=== PATIENT | female | born 1960 | race Caucasian/White ===

== ENCOUNTER 2018-07-21 15:33 | Emergency (ER) | payer OTHER, SELFPAY ==
--- NOTE | 2018-07-21 15:37 | ED.UPPEXIN ---
HPI - Extremity Injury (Upper) <Jeannette Bains PA-C - Last Filed: 07/21/18 21:29> General Chief Complaint: Extremity Injury, Upper Stated Complaint: RIGHT ARM INJURY FROM FALL Time Seen by Provider: 07/21/18 15:36 Source: patient Mode of arrival: ambulatory Limitations: no limitations History of Present Illness HPI narrative: This healthy 58-year-old right-handed female was walking on a downhill trail when she fell backwards with all the weight onto her right wrist and forearm area. The wrist and forearm went behind her (indicates with wrist extended). She denies any head contusion or any other injury. She indicates pain in her wrist and proximal forearm. She states that it is painful to move her hand and fingers but it hurts in her wrist, does not think she hurt any of her fingers or hand. She has not taken any pain medication. She did ice and apply a sling Related Data Allergies Allergy/AdvReac Type Severity Reaction Status Date / Time Sulfa (Sulfonamide Allergy Verified 07/21/18 15:42 Antibiotics) Review of Systems <Jeannette Bains PA-C - Last Filed: 07/21/18 21:29> Review of Systems All systems reviewed & are unremarkable except as noted in HPI and below Exam <Jeannette Bains PA-C - Last Filed: 07/21/18 21:29> Narrative Exam Narrative: GENERAL APPEARANCE: Patient sitting comfortably, in no distress. LUNGS: Clear to auscultation bilaterally. HEART: Rate and rhythm regular without murmur, normal S1 and S2, no S3 or S4. DERMATOLOGIC: No R. UE lacerations or eccymoses MS: Right wrist there is trace effusion. She is tender throughout the entirety of the right wrist, more on the medial side. Also tender throughout the proximal forearm. There is no visible deformity. She cannot move the right wrist secondary to tenderness. She can fully extend the fingers with tenderness. Strength in the fingers appears intact in all robins against resistance. No tenderness over the shoulder joint, elbow joint, snuffbox, metacarpals or fingers. NEUROVASCULAR: Right radial and ulnar pulses 2+, finger tips with brisk cap refill, sensation grossly intact Initial Vital Signs Initial Vital Signs: Vital Signs Temperature 96.9 F L 07/21/18 15:41 Pulse Rate 62 07/21/18 15:41 Respiratory Rate 16 07/21/18 15:41 Blood Pressure 135/98 H 07/21/18 15:41 Pulse Oximetry 100 07/21/18 15:41 <DO Oumou Conner Last Filed: 08/02/18 07:04> Initial Vital Signs Initial Vital Signs: Vital Signs Temperature 96.9 F L 07/21/18 15:41 Pulse Rate 62 07/21/18 15:41 Respiratory Rate 16 07/21/18 15:41 Blood Pressure 135/98 H 07/21/18 15:41 Pulse Oximetry 100 07/21/18 15:41 Course <Jeannette Bains PA-C - Last Filed: 07/21/18 21:29> Additional Information: On splint check patient reported that her forearm and wrist felt much more comfortable. Splint fits appropriately, fingers are warm and pink with sensation grossly intact. Orders Ordered: Discontinued Medications Hydrocodone Bitart/Acetaminophen ([place] 5/325) 2 tab PO NOW ONE Stop: 07/21/18 16:14 Last Admin: 07/21/18 16:19 Dose: 2 tab Ibuprofen (Advil) 800 mg PO NOW ONE Stop: 07/21/18 15:46 Last Admin: 07/21/18 15:52 Dose: 800 mg Vital Signs - 8 hr 07/21/18 15:41 07/21/18 16:40 Temperature 96.9 F L 98.0 F Pulse Rate 62 51 L Respiratory Rate 16 16 Blood Pressure 135/98 H Blood Pressure [Left Arm] 126/73 H Pulse Oximetry 100 98 <DO Oumou Conner Last Filed: 08/02/18 07:04> Orders Ordered: Discontinued Medications Hydrocodone Bitart/Acetaminophen ([place] 5/325) 2 tab PO NOW ONE Stop: 07/21/18 16:14 Last Admin: 07/21/18 16:19 Dose: 2 tab Ibuprofen (Advil) 800 mg PO NOW ONE Stop: 07/21/18 15:46 Last Admin: 07/21/18 15:52 Dose: 800 mg Vital Signs - 8 hr 07/21/18 15:41 07/21/18 16:40 Temperature 96.9 F L 98.0 F Pulse Rate 62 51 L Respiratory Rate 16 16 Blood Pressure 135/98 H Blood Pressure [Left Arm] 126/73 H Pulse Oximetry 100 98 MDM - Extremity Injury (Upper) <Jeannette Bains PA-C - Last Filed: 07/21/18 21:29> Imaging Data extremity: Radiologist's impression: View Report History [address] [address] XRay Report Signed Patient: CONNER LEE MR#: [id number] : 1960 Acct:[id number] Age/Sex: 58 / F Date of Service: 07/21/18 Loc: ED Accession Number: [id number] Procedure: XR wrist RT min 3V Ordering Provider: Jeannette Bains P.A-C PROCEDURE: XR WRIST RT MIN 3V INDICATIONS: fall, pain TECHNIQUE: 4 views of the wrist were acquired. COMPARISON: None. FINDINGS: Bones: Acute slightly comminuted impaction type fracture involving distal radial shaft is seen with fracture line extending to the radiocarpal joint space. Slight shortening of distal radial shaft is seen. No significant angulation or displacement. No suspicious bony lesions. Scaphoid view: Scaphoid is grossly intact. Soft tissues: No suspicious soft tissue calcifications. Mild wrist soft tissue swelling is seen. IMPRESSION: Acute nondisplaced intra-articular distal radial fracture as above. Dictated by: Cristian Flowers M.D. on 07/21/2018 at 16:01 Approved by: Cristian Flowers M.D. on 07/21/2018 at 16:04 View Report History [address] [address] XRay Report Signed Patient: CONNER LEE MR#: [id number] : 1960 Acct:[id number] Age/Sex: 58 / F Date of Service: 07/21/18 Loc: ED Accession Number: [id number] Procedure: XR forearm RT 2V Ordering Provider: Jeannette Bains P.A-C PROCEDURE: XR FOREARM RT 2V INDICATIONS: fall, pain TECHNIQUE: 2 views of the forearm were acquired. COMPARISON: None. FINDINGS: Bones: Acute slightly comminuted intra-articular distal radial shaft fracture is seen. No significant displacement or angulation is noted fracture site. No other fracture or dislocation. No suspicious bony lesions. Soft tissues: No suspicious soft tissue calcifications or masses. IMPRESSION: Acute intra-articular distal radial fracture. Dictated by: Cristian Flowers M.D. on 07/21/2018 at 16:04 Approved by: Cristian Flowers M.D. on 07/21/2018 at 16:05 Discharge Plan Departure Patient Disposition: Home Clinical Impression: Distal radius fracture, right Discharge Date/Time: 07/21/18 16:57 Interventions: ED Discharge Assessment Last Done: 07/21/18 16:56 Instructions: DI for Wrist Fracture Activity Restrictions/Additional Instructions: Please keep the splint on for comfort and protection. You can use the sling as needed, but try to take your arm out and do range of motion with her shoulder a few times daily. Take ibuprofen or Aleve for pain and you can add Tylenol as needed. You should return to the closest ED if you have any acutely worsening pain or other new symptoms such as numbness. Otherwise, please call your PCP 1st thing in the morning and ask for a referral to a local online banking specialist as you should be seen in the next week for follow-up. Referrals: [facility] [Other] ([address] [facility] [address], [place] [address]) <Christian Sandoval DO - Last Filed: 08/02/18 07:04> Cosign ED Attending Rigoberto Attestation: I was available for consultation during this patient's emergency department encounter
[2018-07-21 15:41] VITALS: BP 135/98; PULSE 62; RESP 16; TEMP 36.1; O2SAT 100
--- NOTE | 2018-07-21 15:45 | DI.RAD.S_ITS ---
PROCEDURE: XR WRIST RT MIN 3V INDICATIONS: fall, pain TECHNIQUE: 4 views of the wrist were acquired. COMPARISON: None. FINDINGS: Bones: Acute slightly comminuted impaction type fracture involving distal radial shaft is seen with fracture line extending to the radiocarpal joint space. Slight shortening of distal radial shaft is seen. No significant angulation or displacement. No suspicious bony lesions. Scaphoid view: Scaphoid is grossly intact. Soft tissues: No suspicious soft tissue calcifications. Mild wrist soft tissue swelling is seen. IMPRESSION: Acute nondisplaced intra-articular distal radial fracture as above. Dictated by: Cristian Flowers M.D. on 07/21/2018 at 16:01 Approved by: Cristian Flowers M.D. on 07/21/2018 at 16:04
--- NOTE | 2018-07-21 15:45 | DI.RAD.S_ITS ---
PROCEDURE: XR FOREARM RT 2V INDICATIONS: fall, pain TECHNIQUE: 2 views of the forearm were acquired. COMPARISON: None. FINDINGS: Bones: Acute slightly comminuted intra-articular distal radial shaft fracture is seen. No significant displacement or angulation is noted fracture site. No other fracture or dislocation. No suspicious bony lesions. Soft tissues: No suspicious soft tissue calcifications or masses. IMPRESSION: Acute intra-articular distal radial fracture. Dictated by: Cristian Flowers M.D. on 07/21/2018 at 16:04 Approved by: Cristian Flowers M.D. on 07/21/2018 at 16:05
[2018-07-21] MEDS: IBUPROFEN 400 MG TABLET 800 MG PO (15:52)
[2018-07-21] MEDS: HYDROCODONE/ACET 5/325 TABLET 2 TAB PO (16:19)
[2018-07-21 16:40] VITALS: BP 126/73; PULSE 51; RESP 16; TEMP 36.7; O2SAT 98
--- NOTE | 2018-07-21 16:48 | PC.NURSE ---
pt given splint per provider. pt tolerated procedure.
== END 2018-07-21 16:57 | disposition home or self-care (01) ==
PROVIDERS: Emergency Provider Internal Medicine
DX: S52.501A Unspecified fracture of the lower end of right radius, initial encounter for closed fracture (principal); W18.30XA Fall on same level, unspecified, initial encounter
CPT/HCPCS: 29125; 73090; 73110; 99282; 99283